=== PATIENT | female | born 1975 | race Asian ===

== ENCOUNTER 2022-05-04 08:48 | Inpatient (IN) ==
[2022-05-04] MEDS ORDERED: Buffered Lidocaine 1% SYRIN 1 ml INTRADERM ONE (09:39)
[2022-05-04] MEDS ORDERED: Lactated Ringers 1000 ml BAG 1,000 ML IV ONE (09:39)
[2022-05-04] MEDS ORDERED: ceFOXitin 2 GM IVPREMIX 2 GM/50 ML BAG IVPB ONE (09:39)
[2022-05-04] MEDS ORDERED: Morphine PF AMP (0.5MG/ML) 5 MG/10 ML AMP ONE (09:48)
[2022-05-04] MEDS ORDERED: Acetaminophen IV 1 GM/100ML 1,000 MG/100 ML BAG IV ONE (09:50)
[2022-05-04] MEDS ORDERED: Sodium Citrate/Citric Acid LIQ 15 ML UDC ONE (09:53)
[2022-05-04] MEDS ORDERED: Sodium Citrate/Citric Acid LIQ 15 ML UDC PO ONE (09:53)
[2022-05-04] MEDS ORDERED: fentaNYL 100 mcg/2 ml 50 MCG/ML VIAL ONE (09:55)
[2022-05-04] MEDS ORDERED: Oxytocin in LR 20,000 MILLI.UNIT/1,000 ML BAG IV ONE (09:56)
[2022-05-04 09:58] LABS: ABS Eosinophils 0.1 10^3/ul (0-0.6); ABS Monocytes 0.8 10^3/ul (0-0.8); ABS Neutrophils 9.5 10^3/ul (1.5-7.7); Eosinophil % 0.5 %; Hematocrit 37 % (35-47); Hemoglobin 12.5 g/dL (12.0-16.0); Lymphocyte % 8.4 %; Mean Corpuscular HGB Conc 34 g/dL (31-36); Mean Corpuscular Hemoglobin 33 pg (27-31); Mean Corpuscular Volume 97 fL (80-97); Mean Platelet Volume 8.8 fL (7.4-10.4); Platelet Count 218 10^3/uL (150-450); Red Blood Count 3.81 10^6 /uL (3.70-4.87); Red Cell Distribution Width 14 % (10-15); White Blood Count 11.4 10^3/uL (3.5-10.8)
[2022-05-04] MEDS ORDERED: ceFOXitin 2 GM PREMIX 50 ML IVPB ONE (10:00)
[2022-05-04] MEDS ORDERED: Lactated Ringers 1000 ml BAG 1,000 ML IV SCH ×2 (10:00→12:00)
[2022-05-04] MEDS ORDERED: Sodium Chloride 0.9% 10 ML ONE (10:03)
[2022-05-04] MEDS ORDERED: Ondansetron 4 mg VIAL 2 MG/ML 2 ml VIAL IV PRN (10:25)
[2022-05-04] MEDS ORDERED: Naloxone 0.4 mg VIAL 0.4 mg/ml 1 ml VIAL IV PUSH PRN (10:25)
[2022-05-04] MEDS ORDERED: Metoclopramide 5 MG/ML VIAL (10 mg) IV PRN (10:25)
[2022-05-04 11:32] LABS: Urine Benzodiazepine Screen None Detected (None Detect); Urine Cannabinoids Screen None Detected (None Detect); Urine Opiates Screen None Detected (None Detect)
[2022-05-04] MEDS ORDERED: Witch Hazel PAD JAR TOPICAL PRN (11:44)
[2022-05-04] MEDS ORDERED: Glycerin ADULT 2.4 gm SUPP PR PRN (11:44)
[2022-05-04] MEDS ORDERED: Dibucaine 1% OINT 28.35 GM TUBE PR PRN (11:44)
[2022-05-04] MEDS ORDERED: Oxytocin in LR 20,000 MILLI.UNIT/1,000 ML BAG IV SCH (11:45)
[2022-05-04 12:14] LABS: Urine Appearance Slightly Cloudy; Urine Bilirubin Negative (Negative); Urine Color Yellow; Urine Glucose Negative (Negative); Urine Ketones Negative (Negative); Urine Nitrite Negative (Negative); Urine Protein Negative (Negative); Urine Specific Gravity 1.015 (1.005-1.030); Urine Urobilinogen 0.2 (Negative) (Negative)
[2022-05-04 12:37] LABS: Urine Bacteria Absent (Absent); Urine Red Blood Cell 3+(>10/hpf) (Absent); Urine Squamous Epithelial Cell Present (Absent); Urine White Blood Cell 1+(6-10/hpf) (Absent)
[2022-05-04] MEDS ORDERED: Gelfoam 12-7 ADSORBABL SPONGE ONE (14:25)
[2022-05-04] MEDS ORDERED: Acetaminophen IV 1 GM/100ML 1,000 MG/100 ML BAG IV PRN (18:30)
[2022-05-05 07:07] LABS: ABS Basophils 0.1 10^3/ul (0-0.2); ABS Lymphocytes 1.1 10^3/ul (1.0-4.8); ABS Monocytes 1.1 10^3/ul (0-0.8); ABS Neutrophils 13.8 10^3/ul (1.5-7.7); Eosinophil % 0.1 %; Hematocrit 32 % (35-47); Hemoglobin 10.9 g/dL (12.0-16.0); Mean Corpuscular HGB Conc 34 g/dL (31-36); Mean Corpuscular Hemoglobin 33 pg (27-31); Mean Corpuscular Volume 96 fL (80-97); Mean Platelet Volume 8.1 fL (7.4-10.4); Platelet Count 203 10^3/uL (150-450); Red Blood Count 3.36 10^6 /uL (3.70-4.87); Red Cell Distribution Width 15 % (10-15); White Blood Count 16.2 10^3/uL (3.5-10.8)
[2022-05-07 08:42] VITALS: BP 100/61
== END 2022-05-07 21:00 | disposition home or self-care (01) | DRG 785 ==
LOC: MCHOB 08:48
PROVIDERS: ADMIT Obstetrics & Gynecology; ATTEND Obstetrics & Gynecology